=== PATIENT | female | born 1950 | race Caucasian/White ===

== ENCOUNTER → 2017-01-26 | Outpatient (CLI) | payer MEDICARE, BC | LOC: MC.RAD 08:58 | DX: Z12.31 Encounter for screening mammogram for malignant neoplasm of breast (principal) ==

== ENCOUNTER 2018-02-06 06:53 | Emergency (ER) | payer MEDICARE, BC ==
[~2018-02-06] VITALS: Ht 165.1 cm; Wt 52.7 kg
[2018-02-06] MEDS ORDERED: BENADRYL50 MG PO (07:18)
[2018-02-06] MEDS ORDERED: ESTRACE 1MG1 MG/TAB PO (07:19)
[2018-02-06] MEDS ORDERED: LEVOXYL0.088 MG PO (07:19)
[2018-02-06] MEDS ORDERED: PREDNISONE10 MG PO (07:27)
[2018-02-06 07:47] VITALS: BP 122/70; PULSE 62; TEMP 97.3
== END 2018-02-06 07:48 | disposition home or self-care (01) ==
LOC: COL.ER 06:53
DX: L23.7 Allergic contact dermatitis due to plants, except food (principal)
CPT/HCPCS: J7512

== ENCOUNTER 2018-02-12 14:07 | Emergency (ER) | payer MEDICARE, BC ==
[~2018-02-12] VITALS: Ht 165.1 cm; Wt 52.7 kg
[~2018-02-12 14:07] MED LIST: BENADRYL50 MG PO; ESTRACE 1MG1 MG/TAB PO; LEVOXYL0.088 MG PO; PREDNISONE10 MG PO
[2018-02-12 14:11] VITALS: BP 138/67; TEMP 98.8
[2018-02-12] MEDS ORDERED: PREDNISONE10 MG PO (14:58)
[2018-02-12 15:23] VITALS: PULSE 82
== END 2018-02-12 15:20 | disposition home or self-care (01) ==
LOC: COL.ER 14:07
DX: L25.9 Unspecified contact dermatitis, unspecified cause (principal); Z86.19 Personal history of other infectious and parasitic diseases; Z90.710 Acquired absence of both cervix and uterus; Z88.2 Allergy status to sulfonamides; Z79.52 Long term (current) use of systemic steroids

== ENCOUNTER → 2018-03-06 | Outpatient (CLI) | payer MEDICARE, BC | LOC: MC.RAD 13:29 | DX: Z12.31 Encounter for screening mammogram for malignant neoplasm of breast (principal) ==

== ENCOUNTER → 2019-06-17 | Outpatient (CLI) | payer MEDICARE, BC | LOC: MC.RAD 09:43 | DX: Z12.31 Encounter for screening mammogram for malignant neoplasm of breast (principal) ==